=== PATIENT | female | born 1970 | race Two or more races ===

== ENCOUNTER 2022-07-03 15:33 | Emergency (ER) | payer BC ==
[~2022-07-03] VITALS: Ht 157.5 cm; Wt 77.1 kg
[2022-07-03] MEDS ORDERED: WELLBUTRIN XL300 MG PO (15:53)
[2022-07-03] MEDS ORDERED: PROPRANOLOL HCL40 MG PO (15:53)
[2022-07-03] MEDS ORDERED: SYNTHROID75 MCG PO (15:54)
[2022-07-03] MEDS ORDERED: ZOLOFT100 MG PO (15:54)
== END 2022-07-03 22:09 | disposition home or self-care (01) ==
LOC: ER 15:33
DX: S20.211A Contusion of right front wall of thorax, initial encounter (principal); S40.011A Contusion of right shoulder, initial encounter; W18.39XA Other fall on same level, initial encounter; Y93.89 Activity, other specified; Y92.89 Other specified places as the place of occurrence of the external cause; S22.31XA Fracture of one rib, right side, initial encounter for closed fracture